=== PATIENT | female | born 1975 | race Caucasian/White ===

== ENCOUNTER 2016-10-17 07:38 | Emergency (ER) ==
--- NOTE | 2016-10-17 09:46 | PROVIDER DOCUMENTATION ---
[facility] General - General Source: patient - History of Present Illness-[facility] General [facility] Location: reports: dental Quality of Pain: reports: aching Severity: reports: severe Onset/Duration: reports: last night Timing: reports: still present Prearrival Treatment: Initiated no prearrival treatment Locality of Occurance: Home Similar Symptoms Previously?: No Recently seen or treated by another doctor?: No <Mela Snyder - Last Filed: 10/17/16 09:49> <Ryland Valdes - Last Filed: 10/17/16 10:57> - General Chief Complaint: Toothache Stated Complaint: ABSCESS TOOTH Time Seen by Provider: 10/17/16 07:52 Allergies/Adverse Reactions: Patient Allergies Allergy/AdvReac Type Severity Reaction Status Date / Time No Known Allergies Allergy Verified 10/17/16 08:04 - History of Present Illness-[facility] General Nature of Presenting Problem: Reports left upper back tooth pain since last night with left upper face swelling . pt denies n,v,f. Pt has diabetes. (Mela Snyder) Review of Systems - Adult - REVIEW OF SYSTEMS - ADULT Constitutional: denies: chills, fever, fatique Eyes: denies: discharge, blurred vision, double vision Ears, Nose, Mouth & Throat: reports: mouth/dental pain. denies: ear pain, sinus problem, throat pain Cardiovascular: reports: no symptoms reported Respiratory: reports: no symptoms reported Gastrointestinal: reports: no symptoms reported Genitourinary: reports: no symptoms reported Musculoskeletal: reports: no symptoms reported Integumentary: reports: no symptoms reported Neurological: reports: no symptoms reported Psychiatric: reports: no symptoms reported Endocrine: reports: no symptoms reported Hematologic/Lymphatic: reports: no symptoms reported Allergic/Immunologic: reports: no symptoms reported All Other Systems: Reviewed and Negative <Mela Snyder - Last Filed: 10/17/16 09:49> Past History - Adult - PAST MEDICAL HISTORY-ADULT Review of Records: reports: Nursing Assessment Review, Medications Reviewed Major Childhood Illnesses: reports: denies history Endocrine/Immune: reports: Diabetes - IMMUNIZATION STATUS Childhood Immunizations: See Nurse Assessment Flu Vaccine: See Nurse Assessment - FAMILY HISTORY Family History: reviewed, not pertinent - SOCIAL HISTORY Smoking: cigarettes, greater than 1 pack/day Provider spent 3-5 mins advising pt. on dangers of tobacco.: Discussed manners to quit use, and f/u contacts for add'l counseling. Substance Use: none/never <Mela Snyder - Last Filed: 10/17/16 09:49> Physical Exam- EENT - Physical Exam EENT Initial Vital Signs Reviewed: Yes General Appearance: appears well, alert, mild distress Eye Exam: bilateral eye: normal inspection, PERRL, EOMI Ear Exam: bilateral ear: auricle normal, canal normal, TM normal Throat Exam: pharynx normal, dental tenderness (left upper 2nd molar dental caries), other (mild upper left fac swelling no abscess noted) Respiratory: chest non-tender, lungs clear, normal breath sounds, no pleuratic chest pain, no respiratory distress, no accessory muscle use Cardiovascular: normal peripheral pulses, regular rate, rhythm, no edema, no gallop, no JVD, no murmur Abdominal Exam: normal bowel sounds, non tender, soft, no organomegaly, no pulsatile mass Back Exam: normal inspection, no CVA tenderness, no vertebral tenderness Extremity: normal range of motion, non-tender, normal gait Integumentary: normal color, normal turgor, warm/dry 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, no motor/sensory deficits Psych/Mental Status: AL, normal mood/affect, normal thought content, normal thought process, oriented x 3 <ClaudioChristinechel - Last Filed: 10/17/16 09:49> Progress <SnyderMela - Last Filed: 10/17/16 09:49> <Ryland Valdes X - Last Filed: 10/17/16 10:57> - PLAN OF CARE/RESULTS Progress/Plan/Lab Results: Vital Signs - 24 hr 10/17/16 08:00 Temperature 97.3 F L Pulse Rate 75 Respiratory 18 Rate Blood Pressure 189/091 O2 Sat by Pulse 97 Oximetry Orders Category Date Time Status Finger Stick Blood Sugar (ED) DIRECTED Care 10/17/16 09:50 Active CefTRIAXONE [Rocephin] Med 10/17/16 09:50 Once 1 gm IM NOW ONE Lidocaine 1% Pf [Xylocaine-Mpf 1%] Med 10/17/16 09:50 Once 5 ml INJ NOW ONE Vital Signs - 24 hr 10/17/16 08:00 Temperature 97.3 F L Pulse Rate 75 Respiratory 18 Rate Blood Pressure 189/091 O2 Sat by Pulse 97 Oximetry (Mela Snyder) Departure - Departure Time of Disposition Order: 09:50 Certified Medical Emergency: Emergent <Mela Snyder - Last Filed: 10/17/16 09:49> - Departure Time of Disposition Order: 10:56 Certified Medical Emergency: Emergent <Ryland Valdes - Last Filed: 10/17/16 10:57> - Departure DIAGNOSIS: Pain, dental, Dental caries Disposition: HOME 01 Condition: Stable Additional Instructions: Follow up with Dentist ED Follow Up Instructions: You have been treated by a care provider in the Emergency Department. These instructions are being provided to you so you can have an understanding of how to care for yourself upon discharge. Upon discharge from the Emergency Department, you are responsible for making arrangements for follow-up care by a physician of your choice. Take all prescribed medications as directed. Return to the Emergency Department immediately for any new or worsening symptoms. You may call the Physician Referral phone number at [phone] to obtain a list of Physicians who are taking new patients. Prescriptions: Amoxicillin 500 mg PO TID #30 capsule Naproxen [Naprosyn] 500 mg PO BID #20 tablet Referrals: None,PCP [Primary Care Provider] - Attestation - Scribe Verification/Attestation Scribe:: Mela Snyder Acting as Scribe for:: Ryland Valdes Scribe documention review:: This chart was documented by a scribe and accurately reflects the service the provider performed and the decisions made by the provider. <Mela Snyder - Last Filed: 10/17/16 09:49> Physician Attestation
[2016-10-17] MEDS ORDERED: ROCEPHIN IM ONE (09:50)
[2016-10-17] MEDS ORDERED: XYLOCAINE-MPF 1% INJ ONE (09:50)
[2016-10-17 11:06] VITALS: BP 171/103
== END 2016-10-17 11:09 | disposition home or self-care (01) ==
LOC: P.ED 07:38
DX: K08.89 Other specified disorders of teeth and supporting structures (principal); K02.9 Dental caries, unspecified; R22.0 Localized swelling, mass and lump, head; E11.9 Type 2 diabetes mellitus without complications; F17.210 Nicotine dependence, cigarettes, uncomplicated; Z71.6 Tobacco abuse counseling
CPT/HCPCS: 82948; 96372; J0696